=== PATIENT | male | born 1970 | race Caucasian/White ===

== ENCOUNTER → 2024-01-12 | Outpatient (CLI) | payer OTHER, SELFPAY ==
--- NOTE | 2024-01-12 11:08 | RAD_ITS ---
ACR Level 3 findings have been noted. An addendum which confirms receipt of the report will follow. STUDY: X-RAY CHEST REASON FOR EXAM: Male, 53 years old. Emphysema. TECHNIQUE: Frontal and lateral views of the chest. COMPARISON: None. FINDINGS: Mild hyperinflation. 11 mm in diameter apparent nodule projected over the left lower lobe seen only on the frontal view, just above the hemidiaphragm. This may represent a nipple. However, if the patient has prior films for comparison, these should be obtained for comparison. If the patient does not have prior films, a repeat chest x-ray in 3-6 months would be appropriate. There is no demonstrated pleural abnormality. Normal size heart. Normal mediastinum and sherron. Prominent central pulmonary arteries. Normal visualized aortic arch and descending thoracic aorta. Normal visualized thoracic spine. Normal visualized ribs, clavicles, and shoulders. No abnormality of the visualized soft tissue structures of the upper abdomen. RAD/Chest PA and Lateral IMPRESSION: Hyperinflation with possible 11 mm in diameter noncalcified nodule projected over the left lower lobe seen only on the frontal view. See discussion above. Electronically Signed: Sharan Acevedo MD at 13:31 EDT ,
== END | disposition home or self-care (01) ==
LOC: PSN 09:59
PROVIDERS: Referring Provider Chiropractor; Visit Provider Chiropractor
DX: J98.3 Compensatory emphysema (principal)
CPT/HCPCS: 71046; 94060; 94726; 94729